=== PATIENT | female | born 1990 | race Caucasian/White ===

== ENCOUNTER 2021-08-01 15:38 | Emergency (ER) | payer BC, MEDICAID ==
--- NOTE | 2021-08-01 16:01 | EDM.PDOC ---
ED HPI GENERAL MEDICAL PROBLEM - General Chief Complaint: Respiratory Problem Stated Complaint: SHORTNESS OF BREATH Time Seen by Provider: 08/01/21 15:49 - History of Present Illness INITIAL COMMENTS - FREE TEXT/NARRATIVE: pT HAS BEEN SICK SINCE YESTERDAY. She has sinus pressure and head congestion. Her chest hurts when she coughs. She feels weak and tired. Covid test today is negative. She has Hx of Asthma, but has not taken any inhalers lately, and doesn't have any at home. ED ROS GENERAL - Review of Systems Review Of Systems: Comprehensive ROS is negative, except as noted in HPI. Constitutional: Reports: Weakness, Fatigue HEENT: Reports: Sinus Problem Respiratory: Reports: Shortness of Breath, Wheezing, Cough ED EXAM, GENERAL - Physical Exam Exam: See Below Free Text/Narrative:: Pt is awake and alert. No respiratory distress. Head: Sinus Tenderness (over the Maxillary sinuses.) Neck: Other (Mild posterior drainage and redness.) Respiratory/Chest: Other (slightly reduced A/E. No wheezes or Rales today.) Course - Re-Assessments/Exams Free Text/Narrative Re-Assessment/Exam: 08/01/21 15:59 I discussed doing some lab and possible CXR. Pt declines, saying she just needs to be treated. I will start her on Omnicef and an Albuterol inhaler to use orn. She should rest for a day or 2. Increase fluids. Follow up as needed. Departure - Departure Time of Disposition: 15:55 Disposition: Home, Self-Care 01 Condition: Good Clinical Impression: Acute bronchitis Sinusitis Qualifiers: Sinusitis location: maxillary Chronicity: acute Recurrence: not specified as recurrent Qualified Code(s): J01.00 - Acute maxillary sinusitis, unspecified - Discharge Information *PRESCRIPTION DRUG MONITORING PROGRAM REVIEWED*: No *COPY OF PRESCRIPTION DRUG MONITORING REPORT IN PATIENT ROMI: No Referrals: PCP,None [Primary Care Provider] -
== END 2021-08-01 16:00 | disposition home or self-care (01) ==
LOC: LB.ED 15:38
DX: J01.00 Acute maxillary sinusitis, unspecified (principal); J20.9 Acute bronchitis, unspecified
CPT/HCPCS: 99284

== ENCOUNTER 2021-10-22 01:32 | Emergency (ER) | payer BC, MEDICAID ==
--- NOTE | 2021-10-22 02:53 | EDM.PDOC ---
ED HPI GENERAL MEDICAL PROBLEM - General Chief Complaint: Respiratory Problem Stated Complaint: COLD SYMPTOMS Time Seen by Provider: 10/22/21 02:15 Source of Information: Reports: Patient History Limitations: Reports: No Limitations - History of Present Illness INITIAL COMMENTS - FREE TEXT/NARRATIVE: 31-year-old female presents to the ED complaining of sore throat with cough. Patient had acute onset of cough on Friday. With a marked increase in her cough last night. Patient has taken Mucinex DM, and cough drops without much relief. Patient describes the cough as dry nonproductive. Sore throat as swallowing razor blades. Patient unable to give a reading for her pain/discomfort. Positive for: Headache minor, facial pressure, yearly allergies at change of season, depression for which she takes fluoxetine, for which she takes vitamins. Negative for: Chest pain, shortness of breath syncope/near syncope, nausea/vomiting, constipation/diarrhea, difficulty swallowing, decreased oral intake, changes to urinary frequency color smell, red swollen joints, blurred vision, trauma, or EtOH/recreational drug use Associated Symptoms: Reports: Fever/Chills. Denies: Loss of Appetite, Nausea/Vomiting, Rash, Shortness of Breath, Syncope - Related Data Allergies Allergy/AdvReac Type Severity Reaction Status Date / Time No Known Allergies Allergy Verified 08/01/21 16:16 Past Medical History YARD [employer]ER History: Reports: (Current) Psychiatric History: Reports: Anxiety Social & Family History - Family History Family Medical History: No Pertinent Family History ED ROS GENERAL - Review of Systems Review Of Systems: Comprehensive ROS is negative, except as noted in HPI. ED EXAM, GENERAL - Physical Exam Exam: See Below Free Text/Narrative:: ABC intact. No apparent distress. No obvious trauma. Speaking in full sentences. Alert and oriented x3, GCS 456. Exam Limited By: No Limitations General Appearance: Alert, WD/WN, No Apparent Distress Eye Exam: Bilateral Eye: EOMI, PERRL Ears: Normal External Exam, Normal Canal, Hearing Grossly Normal, Normal TMs Ear Exam: Bilateral Ear: Auricle Normal, Canal Normal, TM normal Nose: No Blood, Clear Rhinorrhea, Other (Pale nasal mucosa). No: Nasal Tenderness, Nasal Deformity, Nasal Swelling Throat/Mouth: Normal Inspection, Normal Lips, Normal Teeth, Normal Gums, Normal Oropharynx, Normal Voice, No Airway Compromise, Other (Evidence of postnasal drip) Head: Atraumatic, Normocephalic Neck: Normal Inspection, Supple, Non-Tender, Full Range of Motion Respiratory/Chest: No Respiratory Distress, Lungs Clear, Normal Breath Sounds, No Accessory Muscle Use, Chest Non-Tender, Other (Cough present) Cardiovascular: Normal Peripheral Pulses, Regular Rate, Rhythm, No Edema, No Gallop, No JVD, No Murmur, No Rub GI/Abdominal: Soft, Non-Tender, No Organomegaly, No Distention, No Mass Back Exam: Normal Inspection. No: CVA Tenderness (R), CVA Tenderness (L) Extremities: Normal Inspection, Normal Range of Motion, Non-Tender, Normal Capillary Refill, No Pedal Edema Neurological: Alert, Oriented, Normal Cognition, Normal Gait Psychiatric: Normal Affect, Normal Mood Skin Exam: Warm, Dry, Intact, Normal Color, No Rash Lymphatic: No Adenopathy Departure - Departure Time of Disposition: 03:15 Disposition: Home, Self-Care 01 Condition: Good Clinical Impression: Cough in adult Upper respiratory infection Qualifiers: URI type: unspecified viral URI Qualified Code(s): J06.9 - Acute upper respiratory infection, unspecified - Discharge Information *PRESCRIPTION DRUG MONITORING PROGRAM REVIEWED*: No *COPY OF PRESCRIPTION DRUG MONITORING REPORT IN PATIENT ROMI: No Instructions: Viral Respiratory Infection, [id number], Cough, Adult, [id number] Referrals: PCP,None [Primary Care Provider] - - Assessment/Plan Assessment:: 31-year-old female presents to the ED for evaluation for cough and sore throat. This is consistent with an upper respiratory infection. There is no signs at this point of other serious bacterial infection such as otitis media, retropharyngeal abscess, epiglottitis, peritonsillar abscess, strep pharyngitis pneumonia, sinusitis, meningitis, bacteremia. Given clear lung sounds, fever curve, no hypoxia and no respiratory distress I do not feel patient needs a chest x-ray at this point as the probability of a bacterial pneumonia is very unlikely. There are no concerning gastrointestinal symptoms at this point and no signs of dehydration. Close follow-up with primary care physician is indicated. Return to the ED for fevers greater than 103, protracted vomiting, confusion. Plan: ABC, history, exam, POC strep test negative, patient education/shared decision- making, supportive/symptomatic care to include humidifier, honey, cough drops, Tylenol, excuse written for work up to 1 week off due to illness -Patient and/or renewals representative understood and agreed to treatment plan. -All questions were answered to the patient's satisfaction. -Patient is discharged in stable condition. Patient to return to the ED if symptoms fever greater than 103, protracted vomiting, confusion. Follow-up with primary care provider after 11 days, if needs to be seen earlier return to ED.
== END 2021-10-22 02:57 | disposition home or self-care (01) ==
LOC: LB.ED 01:32
DX: J06.9 Acute upper respiratory infection, unspecified (principal)
CPT/HCPCS: 99282

== ENCOUNTER 2022-09-10 06:05 | Emergency (ER) | payer BC, MEDICAID ==
[2022-09-10] MEDS: Albuterol/Ipratropium 3.0-0.5 MG/3 ML Neb Soln NEB ONE (08:31)
[2022-09-10] MEDS: Albuterol/Ipratropium 3.0-0.5 MG/3 ML Neb Soln NEB STA (08:31)
[2022-09-10] MEDS: Albuterol 0.083% 2.5 MG/3 ML Neb Soln NEB ONE (08:56)
== END 2022-09-10 09:20 | disposition home or self-care (01) ==
LOC: LB.ED 06:05
DX: J45.901 Unspecified asthma with (acute) exacerbation (principal); U07.0 Vaping-related disorder; Z79.899 Other long term (current) drug therapy; Z87.891 Personal history of nicotine dependence; Z20.822 Contact with and (suspected) exposure to COVID-19
CPT/HCPCS: 36415; 71045; 80048; 83735; 84100; 85025; 87804; 87804-59; 93005; 94640; 99285; J7620; U0002

== ENCOUNTER 2024-02-15 06:07 | Emergency (ER) | payer MEDICAID ==
[2024-02-15] MEDS: Acetaminophen 500 MG Tab PO ONE (07:36)
[2024-02-15] MEDS: Ibuprofen 800 MG Tab ONE (07:37)
[2024-02-15] MEDS: Acetaminophen 500 MG Tab ONE (07:37)
[2024-02-15] MEDS: Ibuprofen 800 MG Tab PO ONE (07:37)
[2024-02-15] MEDS: Sodium Chloride 0.9% 1,000 ML IV ONE (07:42)
[2024-02-15 07:56] LABS: BASOPHILS ABSOLUTE AUTO 0.02 K/uL (0.02-0.10); BASOPHILS PERCENT AUTO 0.2 % (0.0-0.5); EOSINOPHILS PERCENT AUTO 1.9 % (1.0-5.0); HEMATOCRIT 37.1 % (37.0-47.0); HEMOGLOBIN 12.3 g/dL (11.5-16.5); LYMPHOCYTES ABSOLUTE AUTO 2.15 K/uL (1.50-4.00); LYMPHOCYTES PERCENT AUTO 20.6 % (20.0-40.0); MEAN CORPUSCULAR HEMOGLOBIN 30.3 pg (27.0-32.0); MEAN CORPUSCULAR HGB CONC 33.2 g/dL (31.0-35.0); MEAN CORPUSCULAR VOLUME 91 fL (76-96); MEAN PLATELET VOLUME 10.9 fL (6.0-10.0); MONOCYTES ABSOLUTE AUTO 0.68 K/uL (0.20-0.80); MONOCYTES PERCENT AUTO 6.5 % (3.0-10.0); NEUTROPHILS PERCENT AUTO 70.8 % (45.0-70.0); PLATELET COUNT,PLT 258 K/uL (150-500); RED BLOOD CELL COUNT 4.06 M/uL (3.80-5.80); RED CELL DISTRIBUTION WIDTH 12.7 % (11.0-16.0); WHITE BLOOD CELL COUNT,WBC 10.5 K/uL (4.0-11.0)
[2024-02-15 07:57] LABS: APPEARANCE,URINE CLOUDY (CLEAR); BILIRUBIN,URINE NEGATIVE (NEGATIVE); COLOR,URINE YELLOW; GLUCOSE,URINE NEGATIVE (NEGATIVE); KETONES,URINE NEGATIVE (NEGATIVE); LEUKOCYTE ESTERASE,URINE MODERATE (NEGATIVE); NITRITE,URINE NEGATIVE (NEGATIVE); OCCULT BLOOD,URINE NEGATIVE (NEGATIVE); PH,URINE 5.5 (5.0-8.0); PROTEIN,URINE NEGATIVE (NEGATIVE); UROBILINOGEN,URINE 0.2 E.U./dL (0.2-1.0)
[2024-02-15 08:23] LABS: BACTERIA,URINE MANY /HPF; RBC,URINE NOT SEEN /HPF; SQUAMOUS EPITHELIAL CELLS,UR MANY /HPF
[2024-02-15 08:30] LABS: ALBUMIN 3.3 g/dL (3.4-5.0); ANION GAP 11.4 mmol/L (5.0-15.0); BILIRUBIN TOTAL 0.3 mg/dL (0.0-1.0); BUN/CREATININE RATIO 22.5 (6-25); CALCIUM 8.5 mg/dL (8.5-10.1); CARBON DIOXIDE,CO2 28.2 mmol/L (21.0-32.0); CREATININE 1.02 mg/dL (0.55-1.02); EST CRCL DRUG DOSING (CG) 56.35 mL/min; POTASSIUM,K 4.6 mmol/L (3.5-5.1); PROTEIN TOTAL,TP 7.2 g/dL (6.4-8.2)
[2024-02-15 08:31] LABS: A/G RATIO 0.9 (0.8-2.0)
[2024-02-15] MEDS ORDERED: Iopamidol 612 MG/ML 100 ML Bottle IV SCH (09:15)
[2024-02-15] MEDS: Nitrofurantoin Macrocrystal 50 MG Cap PO ONE (10:17)
[2024-02-16] MEDS: Sodium Chloride 0.9% 10 ML Syringe FLUSH ONE (09:40)
[2024-02-16] MEDS: Nitrofurantoin Macrocrystal 50 MG Cap ONE (09:40)
[2024-02-16] MEDS: Sodium Chloride 0.9% 50 ML IV ONE (09:40)
== END 2024-02-15 10:23 | disposition home or self-care (01) ==
LOC: LB.ED 06:07
DX: N39.0 Urinary tract infection, site not specified (principal); I10 Essential (primary) hypertension; J45.909 Unspecified asthma, uncomplicated; E03.9 Hypothyroidism, unspecified; Z79.51 Long term (current) use of inhaled steroids; Z79.899 Other long term (current) drug therapy; Z86.16 Personal history of COVID-19; Z87.891 Personal history of nicotine dependence
CPT/HCPCS: 36415; 74177; 80053; 81001; 81025; 83605; 83690; 85025; 87086; 96360; 99284-25; A9270-GY; J7030